=== PATIENT | female | born 1995 | race Caucasian/White ===

== ENCOUNTER 2016-04-17 13:45 | Emergency (ER) | payer OTHER | END 2016-04-17 14:45 | disposition home or self-care (01) | LOC: ER1 13:45 | DX: L02.411 Cutaneous abscess of right axilla (principal); F17.210 Nicotine dependence, cigarettes, uncomplicated | CPT/HCPCS: 10061; 87070; 87077; 87186; 87205; 99283 ==

== ENCOUNTER 2016-04-19 11:10 | Emergency (ER) | payer OTHER | END 2016-04-19 11:40 | disposition home or self-care (01) | LOC: ER1 11:10 | DX: L02.411 Cutaneous abscess of right axilla (principal); Z88.1 Allergy status to other antibiotic agents; Z88.2 Allergy status to sulfonamides | CPT/HCPCS: 99282 ==

== ENCOUNTER 2016-04-22 19:47 | Emergency (ER) | payer OTHER | END 2016-04-23 00:10 | disposition home or self-care (01) | LOC: ER1 19:47 | DX: L02.411 Cutaneous abscess of right axilla (principal); R30.0 Dysuria; Z23 Encounter for immunization | CPT/HCPCS: 90715; 99282 ==

== ENCOUNTER → 2016-07-28 | Outpatient (CLI) | payer OTHER | LOC: RAD 14:59 | DX: R05 Cough (principal); M25.531 Pain in right wrist; M54.2 Cervicalgia; M54.9 Dorsalgia, unspecified; K59.00 Constipation, unspecified; J98.09 Other diseases of bronchus, not elsewhere classified | CPT/HCPCS: 71020; 72050; 72072; 72110; 73100 ==

== ENCOUNTER → 2016-07-29 | Outpatient (CLI) | payer OTHER | LOC: US 06-18 12:30 | DX: N63 Unspecified lump in breast (principal) | CPT/HCPCS: 76641-LT ==